=== PATIENT | male | born 2000 | race African-American/Black ===

== ENCOUNTER 2021-01-30 09:59 | Emergency (ER) | payer BC, SELFPAY | END 2021-01-30 11:23 | disposition home or self-care (01) | LOC: ERS 09:59 | DX: R09.81 Nasal congestion (principal) | CPT/HCPCS: 99283 ==

== ENCOUNTER 2025-02-12 04:13 | Emergency (ER) | payer OTHER ==
[2025-02-12] MEDS ORDERED: Dexamethasone 10 MG/ML VIAL ONE (06:10)
[2025-02-12] MEDS ORDERED: Ketorolac Tromethamine 30 MG (1 mL) VIAL ONE (06:10)
[2025-02-12] MEDS ORDERED: Lidocaine Viscous Sol 2% 15 ml UD Cup ONE (07:00)
== END 2025-02-12 07:38 | disposition home or self-care (01) ==
LOC: ERS 04:13
DX: J02.9 Acute pharyngitis, unspecified (principal)
CPT/HCPCS: 96372; 99282; J1100; J1885